=== PATIENT | female | born 2000 | race Caucasian/White ===

== ENCOUNTER 2021-07-25 16:20 | Emergency (ER) | payer BC ==
[2021-07-25 16:53] LABS: CHLORIDE,CL 105 mEq/L (98-106); SODIUM,NA 139 mEq/L (136-145)
--- NOTE | 2021-07-25 16:55 | EDM.PDOC ---
ED HPI GENERAL MEDICAL PROBLEM - General Chief Complaint: Gastrointestinal Problem Stated Complaint: blood in stool Time Seen by Provider: 07/25/21 16:30 Source of Information: Reports: Patient History Limitations: Reports: No Limitations - History of Present Illness INITIAL COMMENTS - FREE TEXT/NARRATIVE: This is a 20-year-old female patient that presents to the emergency department with complaints of blood in her stools. Patient also has some lower abdominal pain she initially described on the left side. Patient states that she initially noticed some mucus and blood in her stool last summer. She has had intermittent episodes since then. She presents today after a few days of passing blood with her stools. States that she has had frequent stools today with some diarrhea. Patient denies nausea or vomiting. States that she has been avoiding eating too much while at work over the last few weeks so she does not have so many stools. Denies recent weight loss. Denies fever chills or weakness. Today she described up more bright red with clots noted in her stool. Onset: Today Duration: Week(s):, Getting Worse Location: Reports: Abdomen Quality: Reports: Ache Severity: Moderate Improves with: Reports: None Worsens with: Reports: None Associated Symptoms: Reports: Other (Blood in stool) Lower Abdomen Pain Score (Numeric/FACES): 4 - Related Data Allergies Allergy/AdvReac Type Severity Reaction Status Date / Time No Known Allergies Allergy Verified 07/25/21 16:23 Home Meds: Home Meds Levonorgestrel-Ethin Estradiol [Altavera-28 Tablet] 1 tab PO DAILY 07/25/21 [History] Past Medical History Musculoskeletal History: Reports: Other (See Below) Other Musculoskeletal History: ankylosing spondylitis Social & Family History - Tobacco Use Tobacco Use Status *Q: Never Tobacco User - Caffeine Use Caffeine Use: Reports: None - Recreational Drug Use Recreational Drug Use: No ED ROS GENERAL - Review of Systems Review Of Systems: Comprehensive ROS is negative, except as noted in HPI. ED EXAM, GI/ABD - Physical Exam Exam: See Below General Appearance: Alert, WD/WN, Mild Distress Ears: Normal External Exam, Hearing Grossly Normal Nose: Normal Inspection, No Blood Throat/Mouth: Normal Inspection, Normal Voice, No Airway Compromise Head: Atraumatic, Normocephalic Neck: Supple, Non-Tender Respiratory/Chest: No Respiratory Distress, Lungs Clear, Normal Breath Sounds Cardiovascular: Normal Peripheral Pulses, Regular Rate, Rhythm, No Gallop, No Murmur, No Rub GI/Abdominal Exam: Normal Bowel Sounds, Soft, Tender (More tender on right lower quadrant with palpation) (Female) Exam: Deferred Rectal (Female) Exam: Normal Rectal Tone, Other (No stool in rectal vault to test and no obvious fissures) Back Exam: Full Range of Motion Extremities: Normal Inspection Neurological: Alert, Oriented Psychiatric: Normal Affect, Normal Mood, Tearful Skin Exam: Warm, Dry, Intact Lymphatic: No Adenopathy Course - Vital Signs Last Recorded V/S: Last Vital Signs Temp 96.9 F 07/25/21 16:20 Pulse 82 07/25/21 16:20 Resp 16 07/25/21 16:20 BP 136/96 H 07/25/21 16:20 Pulse Ox 99 07/25/21 16:20 - Orders/Labs/Meds Orders: Active Orders 24 hr Category Date Time Status BMP [BASIC METABOLIC PANEL,BMP] [CHEM] Stat Lab 07/25/21 16:44 Received Labs: Laboratory Tests 07/25/21 Range/Units 16:44 WBC 8.6 (4.0-11.0) 10^3/uL RBC 4.68 (4.00-5.50) x10^6/uL Hgb 13.6 (12.0-16.0) g/dL Hct 40.6 (37.0-47.0) % MCV 86.8 (83.0-97.0) fL MCH 29.1 (27.0-32.0) pg MCHC 33.5 (32.0-36.0) g/dL RDW Coeff of Bess 12.1 (11.0-15.0) % Plt Count 352 (150-400) 10^3/uL Immature Gran % (Auto) 0.1 (0.0-4.9) % Neut % (Auto) 45.8 (41-71) % Lymph % (Auto) 36.8 (24-44) % [place] % (Auto) 12.3 H (0-10) % Eos % (Auto) 4.3 (0-6) % Baso % (Auto) 0.7 (0-1) % Neut # (Auto) 3.91 (1.80-8.00) x10^3/uL Lymph # (Auto) 3.15 (0.60-5.00) 10^3/uL [place] # (Auto) 1.05 (0.00-1.50) 10^3/uL Eos # (Auto) 0.37 (0.00-1.50) 10^3/uL Baso # (Auto) 0.06 (0.00-0.50) 10^3/uL Immature Gran # (Auto) 0.01 (0.00-0.49) 10^3/uL - Re-Assessments/Exams Free Text/Narrative Re-Assessment/Exam: This is a 20-year-old female that presented for complaints of blood in stool. Patient has had these symptoms off and on for the past several months. Reports worse the last few days. She has had diarrhea recently today. A CBC and CMP were completed in the ER today. Results are unremarkable. A rectal exam was performed with no evidence of fissure and no obvious hemorrhoid. No stool in the rectal vault and unable to obtain sample to assess for blood. Plan to discharge home. We will send occult blood cards with patient. 3 of these cards will be sent and patient should collect sample on 3 different stools. She will return these to laboratory. Patient will need to follow-up next week with primary care provider for further evaluation. May need colonoscopy for further evaluation and diagnosis. She was advised to drink plenty of fluids and to stay hydrated. Avoid foods that may cause upset stomach or diarrhea. She may call or return if symptoms are worsening. Departure - Departure Time of Disposition: 17:02 Disposition: Home, Self-Care 01 Condition: Good Clinical Impression: Hematochezia - Discharge Information *PRESCRIPTION DRUG MONITORING PROGRAM REVIEWED*: Not Applicable *COPY OF PRESCRIPTION DRUG MONITORING REPORT IN PATIENT IRISH: Not Applicable Instructions: Lower Gastrointestinal Bleeding Referrals: PCP,None [Primary Care Provider] - Additional Instructions: 1. We will send home stool cards to return to our lab to check for blood. 2. Maintain your hydration by drinking plenty of fluids. 3. Avoid any foods that may upset your stomach. 4. Make an appointment next week with a primary care provider for further evaluation. May need colonoscopy. 5. If symptoms worsen or if you have any questions return to the emergency department. Sepsis Event Note (ED) - Evaluation Sepsis Screening Result: No Definite Risk - Focused Exam Vital Signs: Vital Signs Temp Pulse Resp BP Pulse Ox 07/25/21 16:20 96.9 F 82 16 136/96 H 99 - My Orders Last 24 Hours: My Active Orders 07/25/21 16:44 BMP [BASIC METABOLIC PANEL,BMP] [CHEM] Stat - Assessment/Plan Last 24 Hours: My Active Orders 07/25/21 16:44 BMP [BASIC METABOLIC PANEL,BMP] [CHEM] Stat
== END 2021-07-25 17:18 | disposition home or self-care (01) ==
LOC: CC.ED 16:20
DX: K92.1 Melena (principal)
CPT/HCPCS: 36415; 80048; 85025; 99284

== ENCOUNTER 2021-08-05 07:35 | Emergency (ER) | payer BC ==
--- NOTE | 2021-08-05 08:00 | EDM.PDOC ---
ED HPI GENERAL MEDICAL PROBLEM - General Chief Complaint: Gastrointestinal Problem Stated Complaint: VOMITING Time Seen by Provider: 08/05/21 07:50 Source of Information: Reports: Patient History Limitations: Reports: No Limitations - History of Present Illness INITIAL COMMENTS - FREE TEXT/NARRATIVE: States has nausea and vomiting for past several days. Denies , recent negative test and is on control. Currently has scope scheduled for this Tuesday due to bloody stools present since May. Onset: Unknown/Unsure Duration: Getting Worse Location: Reports: Abdomen Quality: Reports: Ache Associated Symptoms: Reports: Nausea/Vomiting Treatments FISH PEDDLER: Reports: Other (see below) (no antiemetics taken at home) - Related Data Allergies Allergy/AdvReac Type Severity Reaction Status Date / Time No Known Allergies Allergy Verified 08/05/21 08:44 Home Meds: Home Meds Levonorgestrel-Ethin Estradiol [Altavera-28 Tablet] 1 tab PO DAILY 07/25/21 [History] Past Medical History Musculoskeletal History: Reports: Other (See Below) Other Musculoskeletal History: ankylosing spondylitis Social & Family History - Caffeine Use Caffeine Use: Reports: None ED ROS GENERAL - Review of Systems Review Of Systems: Comprehensive ROS is negative, except as noted in HPI. ED EXAM, GI/ABD - Physical Exam Exam: See Below Exam Limited By: No Limitations General Appearance: Alert, No Apparent Distress Eyes: Bilateral: EOMI Nose: No Blood Throat/Mouth: Normal Voice, No Airway Compromise Head: Atraumatic, Normocephalic Neck: Normal Inspection, Supple, Non-Tender, Full Range of Motion Respiratory/Chest: No Respiratory Distress, Lungs Clear, Normal Breath Sounds, No Accessory Muscle Use, Chest Non-Tender Cardiovascular: Regular Rate, Rhythm GI/Abdominal Exam: Normal Bowel Sounds, Soft, Non-Tender, No Distention Back Exam: Normal Inspection, Full Range of Motion Extremities: Normal Inspection, Normal Range of Motion, Non-Tender, No Pedal Edema, Normal Capillary Refill Neurological: Alert, Oriented, Normal Cognition, Normal Gait, No Motor/Sensory Deficits Psychiatric: Normal Affect, Normal Mood Skin Exam: Warm, Dry, Intact, Normal Color, No Rash Lymphatic: No Adenopathy Course - Vital Signs Last Recorded V/S: Last Vital Signs Temp 98.2 F 08/05/21 07:43 Pulse 113 H 08/05/21 07:43 Resp 20 08/05/21 07:43 BP 133/78 08/05/21 07:43 Pulse Ox 96 08/05/21 07:43 - Orders/Labs/Meds Labs: Laboratory Tests 08/05/21 08/05/21 Range/Units 08:32 08:32 WBC 10.8 (4.0-11.0) 10^3/uL RBC 4.57 (4.00-5.50) x10^6/uL Hgb 13.1 (12.0-16.0) g/dL Hct 39.1 (37.0-47.0) % MCV 85.6 (83.0-97.0) fL MCH 28.7 (27.0-32.0) pg MCHC 33.5 (32.0-36.0) g/dL RDW Coeff of Bess 12.1 (11.0-15.0) % Plt Count 302 (150-400) 10^3/uL Immature Gran % (Auto) 0.2 (0.0-4.9) % Neut % (Auto) 76.3 H (41-71) % Lymph % (Auto) 12.6 L (24-44) % [place] % (Auto) 8.2 (0-10) % Eos % (Auto) 2.4 (0-6) % Baso % (Auto) 0.3 (0-1) % Neut # (Auto) 8.27 H (1.80-8.00) x10^3/uL Lymph # (Auto) 1.36 (0.60-5.00) 10^3/uL [place] # (Auto) 0.89 (0.00-1.50) 10^3/uL Eos # (Auto) 0.26 (0.00-1.50) 10^3/uL Baso # (Auto) 0.03 (0.00-0.50) 10^3/uL Immature Gran # (Auto) 0.02 (0.00-0.49) 10^3/uL Sodium 139 (136-145) mEq/L Potassium 3.8 (3.5-5.0) mEq/L Chloride 101 (98-106) mEq/L Carbon Dioxide 22 (21-32) mmol/L BUN 7 (7-18) mg/dL Creatinine 0.8 (0.6-1.0) mg/dL Est Cr Clr Drug Dosing TNP Estimated GFR (MDRD) > 60 (>=60) mL/min Glucose 65 L D (75-99) mg/dL Calcium 8.5 (8.4-10.1) mg/dL Total Bilirubin 0.4 (0.0-1.0) mg/dL AST 12 L (15-37) U/L ALT 25 (12-78) U/L Alkaline Phosphatase 73 (46-116) U/L Total Protein 6.9 (6.4-8.2) g/dL Albumin 3.1 L (3.4-5.0) g/dL Meds: Medications Discontinued Medications Generic Name Dose Route Start Last Admin Trade Name Freq PRN Reason Stop Dose Admin Sodium Chloride 1,000 mls @ 999 mls/hr 08/05/21 07:57 08/05/21 08:34 Normal Saline IV 08/05/21 08:57 999 mls/hr .BOLUS ONE Administration Ondansetron HCl 4 mg 08/05/21 08:00 08/05/21 08:34 Ondansetron 4 Mg/2 Ml Sdv IVPUSH 08/05/21 08:01 4 mg ONETIME ONE Administration - Re-Assessments/Exams Free Text/Narrative Re-Assessment/Exam: 08/05/21 08:54 States feeling better after ondansetron and some IV fluids. Blood sugar 65 on lab, gave apple juice to sip. 08/05/21 09:01 Rx Ondansetron 4mg ODT q 6 hrs prn, disp #12, no refills Departure - Departure Time of Disposition: 09:40 Disposition: Home, Self-Care 01 Condition: Good Clinical Impression: Nausea & vomiting Qualifiers: Vomiting type: unspecified Qualified Code(s): R11.2 - Nausea with vomiting, unspecified - Discharge Information Instructions: Nausea and Vomiting, Adult, [id number] Forms: ED Department Discharge Additional Instructions: Ondansetron as prescribed for nausea/vomiting. Keep your appointment for your scope on Tuesday. Follow up with your Primary Care Provider as needed. Sepsis Event Note (ED) - Focused Exam Vital Signs: Vital Signs Temp Pulse Resp BP Pulse Ox 08/05/21 07:43 98.2 F 113 H 20 133/78 96 - Problem List & Annotations (1) Nausea & vomiting SNOMED Code(s): 05963633 Code(s): R11.2 - NAUSEA WITH VOMITING, UNSPECIFIED Status: Acute Qualifiers: Vomiting type: unspecified Qualified Code(s): R11.2 - Nausea with vomiting, unspecified - Problem List Review Problem List Initiated/Reviewed/Updated: Yes
[2021-08-05] MEDS: Ondansetron 4 MG/2 ML SDV IVPUSH ONE (08:34)
[2021-08-05] MEDS: Sodium Chloride 0.9% 1,000 ML IV ONE (08:34)
[2021-08-05 08:47] LABS: CHLORIDE,CL 101 mEq/L (98-106); SODIUM,NA 139 mEq/L (136-145)
== END 2021-08-05 09:40 | disposition home or self-care (01) ==
LOC: CC.ED 07:35
DX: R11.2 Nausea with vomiting, unspecified (principal)
CPT/HCPCS: 36415; 80053; 85025; 96374; 99284-25; J2405; J7030

== ENCOUNTER → 2021-08-07 | Day surgery (SDC) | payer BC ==
[~2021-08-07] MED LIST: Lactated Ringers 1,000 ML IV SCH
== END ==
LOC: CC.SDS 10:31
PROVIDERS: ATTEND Family Medicine
DX: Z53.09 Procedure and treatment not carried out because of other contraindication (principal)
CPT/HCPCS: 36415; 84703

== ENCOUNTER 2022-10-27 10:04 | Emergency (ER) | payer BC ==
[2022-10-27 10:50] VITALS: BP 115/65; PULSE 90
== END 2022-10-27 11:55 | disposition home or self-care (01) ==
LOC: CC.ED 10:04
DX: O22.42 Hemorrhoids in pregnancy, second trimester (principal); O99.612 Diseases of the digestive system complicating pregnancy, second trimester; K58.1 Irritable bowel syndrome with constipation; Z88.0 Allergy status to penicillin; Z3A.24 24 weeks gestation of pregnancy
CPT/HCPCS: 36415; 80053; 85025; 99283; 99284